=== PATIENT | female | born 1970 | race Caucasian/White ===

== ENCOUNTER 2018-05-21 15:19 | Inpatient (IN) | payer SELFPAY ==
[~2018-05-21] VITALS: Ht 165.1 cm; Wt 77.1 kg
--- OUTSIDE RECORDS SUMMARY | 2018-05-21 15:24 | XMS REPORT ---
Author Author [facility] Medical Staff Organization [facility] Address [address], [place] [address] Phone [phone] Care Team Providers Care Oyster Grower Name Role Phone NOÉ TUCKER, KARL PP [phone] Summary purpose TRANSITION OF CARE AUTO GENERATION Chief Complaint and Reason for Visit Admit Diagnosis 1 SWELLING IN HEAD NECK Problem list No authorized problems tracked for continuity of care are available for this visit. Encounters No authorized problems tracked for encounter diagnoses are available for this visit. Medications No medications recorded for this patient visit Allergies, adverse reactions, alerts Allergen Category Ingredient Status Reaction Severity Onset Penicillins Drug Allergy Penicillins Confirmed or Verified cortisone Drug Allergy cortisone Confirmed or Verified Sulfa (Sulfonamide Antibiotics) Drug Allergy Sulfa (Sulfonamide Antibiotics) Confirmed or Verified Immunizations No immunizations recorded for this patient visit Relevant diagnostic tests and/or laboratory data No authorized results are available for this patient visit History of procedures Procedure Code Code Type Description Date Performed Performing Physician 51317 CPT-4 EMERGENCY DEPT VISIT 08-22-2014 SAJI MALDONADO 52775 CPT-4 EMERGENCY DEPT VISIT 08-22-2014 SAJI MALDONADO Functional status Functional Status Finding Observation Time Abdomen Appearance flat :45 Abdomen soft :45 Urination normal :45 Quality sym/unlabored :45 Cough absent :45 Secretions no :45 Breath Sounds RUL clear :45 Breath Sounds RML clear :45 Breath Sounds RLL clear :45 Breath Sounds JURGEN clear :45 Breath Sounds LLL clear :45 Airway natural :45 Oxygen no :45 Temp >100.4 no :45 Temp <96.8 no :45 Chills with rigors no :45 HR > 90bpm no :45 Respirations > 20 no : Systolic <90 no :45 headache stiff neck no :45 Rapid Resp no :45 Nursing Note d/c instructions reviewed with the patient and she voiced a understanding. Instructed pt to hold celexa for 3 days and take lorazepam for next few days. pt d/c off unit ambulatory in good condition with personal belongings. no hives or SOA noted at this time. :50 Vital signs Type Value Date Respiration Rate 20breaths per minute : Pulse 94beats per minute : Oxygen Saturation 98% :30 BP Systolic 158mmHg :30 BP Diastolic 83mmHg :30 Temperature 98.0F :10 Social history Type Value Smoking Status FORMER SMOKER Treatment Plan No treatment plan text is available for this visit. Hospital discharge instructions Dismissal Condition good Disposition on DC home DC Inst/Educ Give yes PNE Vac none Flu Vac none Tetanus Vac none
--- OUTSIDE RECORDS SUMMARY | 2018-05-21 15:24 | XMS REPORT ---
Author Author [email or web address] [facility] Medical Staff Organization [employer] [facility] Address [address], [place] [address] Phone [phone] Summary purpose TRANSITION OF CARE AUTO GENERATION Chief Complaint and Reason for Visit Admit Diagnosis 1 HEADACHE Problem list No authorized problems tracked for [...] visit Relevant diagnostic tests and/or laboratory data RESULTS Chemistry [id number]:00:00 Result Normal Range Units Sodium 136 134-145 mEq/l Potassium 4.2 3.5-5.1 mEq/l Chloride 98 98-107 mEq/l CO2 H 29.9 22-28 mEq/l Glucose H 239 70-105 mg/dl BUN 10 7-18 mg/dl Creatinine 0.74 0.6-1.0 mg/dl Calcium 9.1 8.4-10.2 mg/dl TP - Total Protein 8.2 6.0-8.3 g/dl Albumin L 3.4 3.5-5 g/dl Bilirubin - Total 0.2 0.1-1.0 mg/dl AST 14 10-42 IU/L ALT 17 12-65 IU/L ALP H 76 25-72 IU/L Osmolality L 278.8 280-300 mOsm/L Albumin/Globulin Ratio 0.7 0-8 Anion GAP 8.1 8-16 BUN/Creatinine Ratio 13.5 10-20 Estimated GFR 86 >=60 mL/min/1.7 Hematology [id number]:00:00 Result Normal Range Units WBC H 10.9 4.8-10.8 103/uL RBC 5.4 4.2-5.4 106/uL HGB L 9.5 12.0-16.0 g/dl HCT L 33.6 36.9-47.0 % MCV L 62.5 81-99 FL MCH L 17.7 27-31 pg MCHC L 28.3 33-37 g/dl RDW H 19.8 11.5-15.5 % PLT 266 130-400 103/uL MPV 10.1 7.3-10.4 FL Segs 58.0 40-70 % Lymphs H 41.0 20-40 % [place] 1.0 0-10 % Hematology - Other (Misc) [id number]:00:00 Result Normal Range Units Sed Rate H 24 0-20 Radiology Results [id number]:00 Result Normal Range Units MPV 10.1 7.3-10.4 FL History of procedures Procedure Code Code Type Description Date Performed Performing Physician 33198 CPT-4 RBC SED RATE, NONAUTOMATED 08-03-2014 HARLEEN HENDRICKSON 70683 CPT-4 COMPREHEN METABOLIC PANEL 08-03-2014 HARLEEN HENDRICKSON 09712 CPT-4 ROUTINE VENIPUNCTURE 08-03-2014 HARLEEN HENDRICKSON 98808 CPT-4 COMPLETE CBC, AUTOMATED 08-03-2014 HARLEEN HENDRICKSON 82257 CPT-4 BL SMEAR W/DIFF WBC COUNT 08-03-2014 HARLEEN HENDRICKSON J1885 CPT-4 TORADOL SYR 30MG/ML 08-03-2014 HARLEEN HENDRICKSON J2405 CPT-4 ONDANSETRON HCL INJECTION 08-03-2014 HARLEEN HENDRICKSON J7030 CPT-4 NORMAL SALINE SOLUTION INFUS 08-03-2014 HARLEEN HENDRICKSON J2060 CPT-4 LORAZEPAM INJECTION 08-04-2014 HARLEEN HENDRICKSON 48156 CPT-4 EMERGENCY DEPT VISIT 08-03-2014 HARLEEN HENDRICKSON 55328 CPT-4 THER/PROPH/DIAG INJ, IV PUSH 08-03-2014 HARLEEN HENDRICKSON 40768 CPT-4 TX/PRO/DX INJ NEW DRUG ADDON 08-03-2014 HARLEEN HENDRICKSON 11862 CPT-4 EMERGENCY DEPT VISIT 08-03-2014 HARLEEN HENDRICKSON Functional status Functional Status Finding Observation Time Abdomen Appearance flat 88-17-216584:25 Abdomen soft 41-62-444004:25 Urination normal : Quality sym/unlabored : Cough absent : Airway natural : Oxygen no :45 Temp >100.4 no : Temp <96.8 no : Chills with rigors no : HR > 90bpm no : Respirations > 20 no : Systolic <90 no : headache stiff neck no : Rapid Resp no : IV Site Location L Hand :55 IV Type peripheral :55 IV Site Information discontinued :55 IV Site Start Attmpt 1 times :45 IV Site Duglas 20 :45 IV Site Appearance WNL :45 IV Site Color clear :45 IV Site Patent yes :45 Dressing Changed yes :45 Dressing Type occlusive :45 Nursing Note IV site dcd. Discharge instructions given, voices understanding. Rx oxy/apap et ativan. Amb off unit in good condition. :55 Vital signs Type Value Date Respiration Rate 18breaths per minute :45 Pulse 90beats per minute :45 Oxygen Saturation 99% :45 BP Systolic 120mmHg :45 BP Diastolic 70mmHg :45 Temperature 98.0F :45 Social history No Social History or smoking status observations were recorded for this visit. ( Unknown if ever smoked.) Treatment Plan No treatment plan text is available for this visit. Hospital discharge instructions Dismissal Condition good Disposition on DC home DC Inst/Educ Give yes Med/Side Effects Rev yes Comment: rx oxy/apap et ativan
--- OUTSIDE RECORDS SUMMARY | 2018-05-21 15:24 | XMS REPORT ---
Author Author [facility] Medical Staff Organization [facility] Address [address], [place] [address] Phone [phone] Summary purpose TRANSITION OF CARE AUTO GENERATION Chief Complaint and Reason for Visit Admit Diagnosis 1 PAIN IN OR AROUND EYE Problem list No authorized problems tracked for [...] Relevant diagnostic tests and/or laboratory data RESULTS Radiology Results [id number]:00 CT HEAD W/O CONT PACs Image DATE OF EXAM: Aug 01 2014 [id number] HEAD WO CONTRAST : RADIOLOGY REPORT DATE OF SERVICE: 08/01/2014 HISTORY: Severe headache, blurred vision. NONCONTRAST CT SCAN OF THE HEAD: 1138 HOURS Axial scans were obtained at 5 mm intervals. No contrast was administered. The ventricles are normal in size. There are no masses. There is no midline shift. There is no hemorrhage or infarction. The cerebellum and brainstem are normal. The bony calvarium is normal and intact. IMPRESSION: Normal CT head MD LIZZETTE Skelton/jjim08/03/2014 15:42:00 / 08/03/2014 18:45:50 cc: This document has been electronically Signed by: On: DATE OF EXAM: Aug 01 2014 [id number] HEAD WO CONTRAST : RADIOLOGY REPORT DATE OF SERVICE: 08/01/2014 HISTORY: Severe headache, blurred vision. NONCONTRAST CT SCAN OF THE HEAD: 1138 HOURS Axial scans were obtained at 5 mm intervals. No contrast was administered. The ventricles are normal in size. There are no masses. There is no midline shift. There is no hemorrhage or infarction. The cerebellum and brainstem are normal. The bony calvarium is normal and intact. IMPRESSION: Normal CT head Benjamin Rmoan MD MWD/jt08/03/2014 15:42:00 / 08/03/2014 18:45:50 cc: This document has been electronically Signed by: BENJAMIN ROMAN On: Aug 04 20147:17A Result Amended on 2014-08-04 at 07:17:14. Previous status was [place]. History of procedures Procedure Code Code Type Description Date Performed Performing Physician 14040 CPT-4 CT HEAD/BRAIN W/O DYE 08-01-2014 SAJI ARIEL J1885 CPT-4 TORADOL SYR 30MG/ML 08-02-2014 SAJI ARIEL 01855 CPT-4 EMERGENCY DEPT VISIT 08-01-2014 SAJI ARIEL 83376 CPT-4 EMERGENCY DEPT VISIT 08-01-2014 SAJI ARIEL 25110 CPT-4 THER/PROPH/DIAG INJ, SC/IM 08-01-2014 SAJI ARIEL Functional status Functional Status Finding Observation Time Abdomen Appearance flat :00 Abdomen soft 42-43-326994:00 Bowel Sounds present :00 Urination normal : Quality sym/unlabored : Cough absent : Airway natural :00 Oxygen no 81-77-064909:17 Temp >100.4 no :00 Temp <96.8 no :00 Chills with rigors no :00 HR > 90bpm no :00 Respirations > 20 no :00 Systolic <90 no :00 headache stiff neck no :00 Rapid Resp no : Nursing Note Discharge instructions given, voices understanding. Home c lortab et polytrim opthalmic eye drops. Amb off unit in good condition. [id number]:17 Vital signs Type Value Date Respiration Rate 18breaths per minute 94-45-774224:17 Pulse 90beats per minute 83-30-227358:17 Oxygen Saturation 98% 07-84-370922:17 BP Systolic 126mmHg 64-24-572734:17 BP Diastolic 73mmHg 31-07-952225:17 Temperature 98.9F 43-82-647415:17 Social history No Social History or smoking status observations were recorded for this visit. ( Unknown if ever smoked.) Treatment Plan No treatment plan text is available for this visit. Hospital discharge instructions Dismissal Condition good Disposition on DC home DC Inst/Educ Give yes Med/Side Effects Rev yes Comment: home c lortab et polytrim opthalmic eye drops Tetanus Vac Unknown
--- OUTSIDE RECORDS SUMMARY | 2018-05-21 15:25 | XMS REPORT | Continuity of Care Document ---
Demographics x Preferred Language Unknown Marital Status Unknown Zoroastrianism Affiliation Unknown Race Unknown Ethnic Group Unknown Author Organization Unknown Address Unknown Allergies Active Description Code Type Severity Reaction Onset Reported/Identified Relationship to Patient Clinical Status Yes cortisone 4945 Drug Allergy N/ A N/A Confirmed or Verified Yes Penicillins 476 Drug Allergy N/ A N/A Yes Sulfa (Sulfonamide Antibiotics) 491 Drug Allergy N/A N/A Confirmed or Verified Medications There is no data. Problems Date Dx Coded Attending Type Code Diagnosis Diagnosed By 08/22/2014 CONSTANTINE SANCHEZ 784.2 SWELLING IN HEAD NECK 08/22/2014 CONSTANTINE SANCHEZ E939.0 ADV EFF ANTIDEPRESSANTS Procedures Code [place] [address] EMERGENCY DEPT VISIT 08/22/2014 Results Test Result Range CBC WITH DIFF - 08/03/14 00:00 HCT 33.6 % 36.9-47.0 HGB 9.5 G/DL 12.0-16.0 LYMPH 41.0 % 20-40 MCH 17.7 PG 27-31 MCHC 28.3 G/DL 33-37 MCV 62.5 FL 81-99 MONO 1.0 % 0-10 MPV 10.1 FL 7.3-10.4 PLT 266 10^3u 130-400 RBC 5.4 10^6u 4.2-5.4 RDW 19.8 % 11.5-15.5 WBC 10.9 10^3u 4.8-10.8 SEGS 58.0 % 40-70 CMP - 08/03/14 00:00 ALB 3.4 G/DL 3.5-5 ALP 76 IU/L 25-72 ALT 17 IU/L 12-65 AST 14 IU/L 10-42 BCR 13.5 10-20 BUN 10 MG/DL 7-18 CA 9.1 MG/DL 8.4-10.2 CL 98 MEQ/L 98-107 CO2 29.9 MEQ/L 22-28 CREA 0.74 MG/DL 0.6-1.0 EGFR 86 eGFR >=60 GLU 239 MG/DL 70-105 K 4.2 MEQ/L 3.5-5.1 NA 136 MEQ/L 134-145 OSMSC 278.8 MOSML 280-300 TBIL 0.2 MG/DL 0.1-1.0 TP 8.2 G/DL 6.0-8.3 Albumin/Globulin Ratio 0.7 0-8 Anion Gap 8.1 8-16 SEDR - 08/03/14 00:00 SEDR 24 0-20 Encounters ACCT No. Visit Date/Time Discharge Status Pt. Type Provider Facility Loc./Unit Complaint [id number] 08/22/2014 18:14:00 08/22/2014 18:50:00 DIS Emergency CONSTANTINE SANCHEZ [facility] EMR [id number] 08/03/2014 21:54:00 08/04/2014 01:00:00 DIS Emergency HARLEEN HENDRICKSON [facility] EMR [id number] 08/01/2014 21:40:00 08/02/2014 01:17:00 DIS Emergency SAJI GEORGE [facility] EMR [id number] 01/05/2014 00:00:00 Document Registration [id number] 09/16/2016 14:10:02 ACT Unknown
--- OUTSIDE RECORDS SUMMARY | 2018-05-21 15:25 | XMS REPORT | Clinical Summary ---
Author Author Admin, E Organization [facility] Address Unknown Phone Unavailable Allergies, Adverse Reactions, Alerts Allergy Name Reaction Description Start Date Severity Status Provider PREDNISONE Critical Active Feroz Blair MD Conditions or Problems Problem Name Problem Code Onset Date Status Entry Date Provider Comment Standard Description Annotate Contusion of left foot, initial encounter Active Feroz Blair MD Medication List Medication Instructions Start Date Stop Date Generic Name NDC Status Provider Patient Instruction BACTRIM DS 800-160 MG TAB 1 tab by mouth twice daily TRIMETHOPRIM-SULFAMETHOXAZOLE 03015777666 Active Feroz Blair MD Active Vital Signs Date Name Value Unit Range Description blood pressure, diastolic 80 mm[Hg] BP mejia blood pressure, systolic 155 mm[Hg] BP sys pulse rate E&M 97 /min Heart rate temperature E&M 97.8 [degF] Body temperature weight E&M 178 [lb_av] Weight Measured Encounters Code Encounter Date Provider Facility CPT-29620 Level 3 Est. Patient 21:12:55 CDT Feroz Blair MD [facility]
--- OUTSIDE RECORDS SUMMARY | 2018-05-21 15:25 | XMS REPORT | Clinical Summary ---
Author Author Admin, E Organization [facility] Address Unknown Phone Unavailable Allergies, Adverse Reactions, [...] 1 tab by mouth twice daily TRIMETHOPRIM-SULFAMETHOXAZOLE [id number] Active Feroz Blair MD Active Vital Signs Date Name Value Unit Range Description blood pressure, diastolic 80 mm[Hg] BP mejia blood pressure, systolic 155 mm[Hg] BP sys pulse rate E&M 97 /min Heart rate temperature E&M 97.8 [degF] Body temperature weight E&M 178 [lb_av] Weight Measured Encounters Code Encounter Date Provider Facility CPT-54562 Level 3 Est. Patient 21:12:55 CDT Feroz Blair MD [facility]
--- OUTSIDE RECORDS SUMMARY | 2018-05-21 15:25 | XMS REPORT | Clinical Summary ---
Author Author Admin, E Organization [facility] Address Unknown Phone Unavailable Allergies, Adverse Reactions, [...] 1 tab by mouth twice daily TRIMETHOPRIM-SULFAMETHOXAZOLE [id number] No Longer Active Feroz Blair MD Active BACTRIM DS 800-160 MG TAB 1 tab by mouth twice daily BACTRIM DS 800-160 MG TAB [id number] TRIMETHOPRIM-SULFAMETHOXAZOLE Inactive Vital Signs Date Name Value Unit Range Description blood pressure, diastolic 80 mm[Hg] BP mejia blood pressure, systolic 155 mm[Hg] BP sys pulse rate E&M 97 /min Heart rate temperature E&M 97.8 [degF] Body temperature weight E&M 178 [lb_av] Weight Measured Encounters Code Encounter Date Provider Facility CPT-74989 Level 3 Est. Patient 21:12:55 CDT Feroz Blair MD [facility]
--- OUTSIDE RECORDS SUMMARY | 2018-05-21 15:25 | XMS REPORT | Clinical Summary ---
Author Author Admin, E Organization [facility] Address Unknown Phone Unavailable Allergies, Adverse Reactions, [...] 1 tab by mouth twice daily TRIMETHOPRIM-SULFAMETHOXAZOLE [id number] No Longer Active Feroz Blair MD Active BACTRIM DS 800-160 MG TAB 1 tab by mouth twice daily BACTRIM DS 800-160 MG TAB [id number] TRIMETHOPRIM-SULFAMETHOXAZOLE Inactive Vital Signs Date Name Value Unit Range Description blood pressure, diastolic 80 mm[Hg] BP mejia blood pressure, systolic 155 mm[Hg] BP sys pulse rate E&M 97 /min Heart rate temperature E&M 97.8 [degF] Body temperature weight E&M 178 [lb_av] Weight Measured Encounters Code Encounter Date Provider Facility CPT-95953 Level 3 Est. Patient 21:12:55 CDT Feroz Blair MD [facility]
--- OUTSIDE RECORDS SUMMARY | 2018-05-21 15:25 | XMS REPORT | Clinical Summary ---
Author Author Admin, E Organization [facility] Address Unknown Phone Unavailable Allergies, Adverse [...] 1 tab by mouth twice daily TRIMETHOPRIM-SULFAMETHOXAZOLE [id number] No Longer Active Feroz Blair MD Active BACTRIM DS 800-160 MG TAB 1 tab by mouth twice daily BACTRIM DS 800-160 MG TAB [id number] TRIMETHOPRIM-SULFAMETHOXAZOLE Inactive Vital Signs Date Name Value Unit Range Description blood pressure, diastolic 80 mm[Hg] BP mejia blood pressure, systolic 155 mm[Hg] BP sys pulse rate E&M 97 /min Heart rate temperature E&M 97.8 [degF] Body temperature weight E&M 178 [lb_av] Weight Measured Encounters Code Encounter Date Provider Facility CPT-83135 Level 3 Est. Patient 21:12:55 CDT Feroz Blair MD [facility]
--- OUTSIDE RECORDS SUMMARY | 2018-05-21 15:25 | XMS REPORT | Clinical Summary ---
Author Author Admin, E Organization [facility] Address Unknown Phone Unavailable Allergies, Adverse [...] 1 tab by mouth twice daily TRIMETHOPRIM-SULFAMETHOXAZOLE [id number] No Longer Active Feroz Blair MD Active BACTRIM DS 800-160 MG TAB 1 tab by mouth twice daily BACTRIM DS 800-160 MG TAB [id number] TRIMETHOPRIM-SULFAMETHOXAZOLE Inactive Vital Signs Date Name Value Unit Range Description blood pressure, diastolic 80 mm[Hg] BP mejia blood pressure, systolic 155 mm[Hg] BP sys pulse rate E&M 97 /min Heart rate temperature E&M 97.8 [degF] Body temperature weight E&M 178 [lb_av] Weight Measured Encounters Code Encounter Date Provider Facility CPT-48233 Level 3 Est. Patient 21:12:55 CDT Feroz Blair MD [facility]
--- OUTSIDE RECORDS SUMMARY | 2018-05-21 15:25 | XMS REPORT | Clinical Summary ---
Author Author Admin, E Organization [facility] Address Unknown Phone Unavailable Allergies, Adverse [...] 1 tab by mouth twice daily TRIMETHOPRIM-SULFAMETHOXAZOLE [id number] Active Feroz Blair MD Active Vital Signs Date Name Value Unit Range Description blood pressure, diastolic 80 mm[Hg] BP mejia blood pressure, systolic 155 mm[Hg] BP sys pulse rate E&M 97 /min Heart rate temperature E&M 97.8 [degF] Body temperature weight E&M 178 [lb_av] Weight Measured Encounters Code Encounter Date Provider Facility CPT-64125 Level 3 Est. Patient 21:12:55 CDT Feroz Blair MD [facility]
--- OUTSIDE RECORDS SUMMARY | 2018-05-21 15:25 | XMS REPORT ---
Author Author [facility] Medical Staff Organization [facility] Address [address], [place] [address] Phone [phone] Summary purpose TRANSITION OF CARE AUTO GENERATION Chief Complaint and Reason for Visit No authorized Reason for Visit (Admitting Diagnosis) is available for this visit. Problem list No authorized problems tracked for [...] for this patient visit History of procedures No procedures recorded for this patient visit. Functional status Functional Status Finding Observation Time Abdomen Appearance flat : Abdomen soft : Bowel Sounds present : Urination normal : Quality sym/unlabored : Cough absent : Airway natural : Oxygen no 57-38-226487:17 Temp >100.4 no : Temp <96.8 no :00 Chills with rigors no : HR > 90bpm no : Respirations > 20 no : Systolic <90 no : headache stiff neck no : Rapid Resp no : Nursing Note Discharge instructions given, voices understanding. Home c lortab et polytrim opthalmic eye drops. Amb off unit in good condition. :17 Vital signs Type Value Date Respiration Rate 18breaths per minute :17 Pulse 90beats per minute :17 Oxygen Saturation 98% :17 BP Systolic 126mmHg :17 BP Diastolic 73mmHg 55-51-879403:17 Temperature 98.9F :17 Social history No Social History or smoking [...]
--- OUTSIDE RECORDS SUMMARY | 2018-05-21 15:25 | XMS REPORT ---
Author Author [employer] [facility] Medical Staff Organization [facility] [employer] [facility] Address [address] [place], [place] [address] Phone [phone] Summary purpose TRANSITION OF CARE AUTO GENERATION [...] diagnostic tests and/or laboratory data RESULTS Chemistry [id number]:00:00 Result Normal Range Units Sodium 136 134-145 [...] 10-20 Estimated GFR 86 >=60 mL/min/1.7 Hematology :00:00 Result Normal Range Units WBC H 10.9 4.8-10.8 103/uL RBC 5.4 4.2-5.4 106/uL HGB L 9.5 12.0-16.0 g/dl HCT L 33.6 36.9-47.0 % MCV L 62.5 81-99 FL MCH L 17.7 27-31 pg MCHC L 28.3 33-37 g/dl RDW H 19.8 11.5-15.5 % PLT 266 130-400 103/uL MPV 10.1 7.3-10.4 FL Segs 58.0 40-70 % Lymphs H 41.0 20-40 % [place] 1.0 0-10 % Hematology - Other (Misc) :00:00 Result Normal Range Units Sed Rate H 24 0-20 Radiology Results :00:00 Result Normal Range Units MPV 10.1 7.3-10.4 FL History of procedures No procedures recorded for this patient visit. Functional status Functional Status Finding Observation Time Abdomen Appearance flat :25 Abdomen soft :25 Urination normal 48-78-199063:25 Quality sym/unlabored :25 Cough absent :25 Airway natural :25 Oxygen no :45 Temp >100.4 no : Temp <96.8 no : Chills with rigors no : HR > 90bpm no : Respirations > 20 no : Systolic <90 no : headache stiff neck no :25 Rapid Resp no :25 IV Site Location L Hand :55 IV [...]
--- NOTE | 2018-05-21 15:46 | ED Syncope ---
General Chief Complaint: Dizziness/Syncope Stated Complaint: SYNCOPE Nursing Triage Note: had syncopal episode at home. Significant other caught her before she hit the ground and was not unconscious for very long. States she has been intermittently dizzy and having mild headaches for the past week. Source of Information: Patient, Spouse Exam Limitations: No Limitations History of Present Illness Date Seen by Provider: May 21, 2018 Time Seen by Provider: 15:25 Initial Comments 48-year-old female who has been having some problems with dizziness over the last couple days presents after having a syncopal episode in the shower. Her was nearby caught her. There is no injuries from the fall. He states that she was unconscious for less than a minute. She woke up with normal mentation. She did not have any lateralizing symptoms. She has had some blurry vision recently but no headache or head injury reported. No fever, chills, respiratory symptoms other than her chronic cough or other associated symptoms. No chest pain reported. She smokes 1-1/2 packs of cigarettes a day. Denies alcohol consumption or drug use. The episode occurred shortly before arriving here. No history of previous similar symptoms reported. Allergies and Home Medications Allergies Coded Allergies: Penicillins (Verified Allergy, Unknown, swelling, 05/21/18) Sulfa (Sulfonamide Antibiotics) (Verified Allergy, Unknown, swelling, 05/21) cortisone (Verified Allergy, Unknown, 05/21/18) prednisone (Verified Allergy, Unknown, swelling, 05/21/18) Patient Home Medication List Home Medication List Reviewed: Yes Review of Systems Constitutional: malaise, weakness EENTM: no symptoms reported Respiratory: cough (chronic) Cardiovascular: no symptoms reported Gastrointestinal: no symptoms reported Genitourinary: no symptoms reported : No Musculoskeletal: no symptoms reported Skin: no symptoms reported Psychiatric/Neurological: Weakness Past Fblgxfr-Ppdyjb-Kadqpb Hx Past Med/Social Hx: Reviewed Nursing Past Med/Soc Hx Patient Social History Recent Foreign Travel: No Contact w/Someone Who Travel: No Recent Infectious Disease Expo: No Physical Exam Vital Signs Vital Signs - First Documented 05/21/18 15:24 Temp 97.0 Pulse 99 Resp 18 B/P (MAP) 157/74 (101) Pulse Ox 97 Capillary Refill : Less Than 3 Seconds Height, Weight, BMI Height: 5'5.00" Weight: 170lbs. oz. 77.683592lk; BMI Method:Stated General Appearance: No Apparent Distress, WD/WN HEENT: PERRL/EOMI, TMs Normal, Normal ENT Inspection, Pharynx Normal Neck: Full Range of Motion, Normal Inspection, Non Tender, Supple Cardiovascular: Regular Rate, Rhythm, No Edema, No Gallop, No JVD, No Murmur, Normal Peripheral Pulses Respiratory: Decreased Breath Sounds, Rhonci (diffusely) Gastrointestinal: Normal Bowel Sounds, No Organomegaly, No Pulsatile Mass, Non Tender, Soft Back: Normal Inspection, No CVA Tenderness, No Vertebral Tenderness Extremities: Normal Capillary Refill, Normal Inspection, Normal Range of Motion , Non Tender, No Calf Tenderness, No Pedal Edema Neurologic/Psychiatric: Alert, Oriented x3, No Motor/Sensory Deficits, Normal Mood/Affect Cranial Nerves: Normal Hearing, Normal Speech, PERRL Coordination/Gait: Normal Finger to Nose, Normal Gait, Negative Romberg's Sign Motor/Sensory: No Motor Deficit, No Sensory Deficit, No Pronator Drift Reflexes: 3+ Bicep (R), 3+ Bicep (L), 3+ Knee (R), 3+ Knee (L) Skin: Normal Color, Warm/Dry, Cool Lymphatic: No Adenopathy Progress/Results/Core Measures Results/Orders Lab Results Laboratory Tests Test 05/21/18 15:39 05/21/18 15:59 Range/Units White Blood Count 7.1 4.3-11.0 10^3/uL Red Blood Count 5.46 4.35-5.85 10^6/uL Hemoglobin 13.0 11.5-16.0 G/DL Hematocrit 41 35-52 % Mean Corpuscular Volume 75 L 80-99 FL Mean Corpuscular Hemoglobin 24 L 25-34 PG Mean Corpuscular Hemoglobin Concent 32 32-36 G/DL Red Cell Distribution Width 17.8 H 10.0-14.5 % Platelet Count 210 130-400 10^3/uL Mean Platelet Volume 10.3 7.4-10.4 FL Neutrophils (%) (Auto) 57 42-75 % Lymphocytes (%) (Auto) 35 12-44 % Monocytes (%) (Auto) 6 0-12 % Eosinophils (%) (Auto) 1 0-10 % Basophils (%) (Auto) 1 0-10 % Neutrophils # (Auto) 4.1 1.8-7.8 X 10^3 Lymphocytes # (Auto) 2.5 1.0-4.0 X 10^3 Monocytes # (Auto) 0.4 0.0-1.0 X 10^3 Eosinophils # (Auto) 0.1 0.0-0.3 10^3/uL Basophils # (Auto) 0.1 0.0-0.1 10^3/uL Sodium Level 133 L 135-145 MMOL/L Potassium Level 4.0 3.6-5.0 MMOL/L Chloride Level 95 L 98-107 MMOL/L Carbon Dioxide Level 16 L 21-32 MMOL/L Anion Gap 22 H 5-14 MMOL/L Blood Urea Nitrogen 12 7-18 MG/DL Creatinine 0.60 0.60-1.30 MG/DL Estimat Glomerular Filtration Rate > 60 BUN/Creatinine Ratio 20 Glucose Level 394 H 70-105 MG/DL Calcium Level 9.3 8.5-10.1 MG/DL Corrected Calcium 9.5 8.5-10.1 MG/DL Total Bilirubin 0.3 0.1-1.0 MG/DL Aspartate Amino Transf (AST/SGOT) 11 5-34 U/L Alanine Aminotransferase (ALT/SGPT) 10 0-55 U/L Alkaline Phosphatase 108 40-136 U/L Troponin T < 10 <=10 NG/L Total Protein 8.0 6.4-8.2 GM/DL Albumin 3.8 3.2-4.5 GM/DL Urine Color YELLOW Urine Clarity CLEAR Urine pH 6.0 5-9 Urine Specific [place] 1.010 L 1.016-1.022 Urine Protein NEGATIVE NEGATIVE Urine Glucose (UA) 3+ H NEGATIVE Urine Ketones NEGATIVE NEGATIVE Urine Nitrite NEGATIVE NEGATIVE Urine Bilirubin NEGATIVE NEGATIVE Urine Urobilinogen 0.2 NORMAL MG/DL Urine Leukocyte Esterase NEGATIVE NEGATIVE Urine RBC (Auto) NEGATIVE NEGATIVE Urine RBC NONE /HPF Urine WBC NONE /HPF Urine Squamous Epithelial Cells 0-2 /HPF Urine Crystals NONE /LPF Urine Bacteria NONE /HPF Urine Casts NONE /LPF Urine Mucus NEGATIVE /LPF Urine Culture Indicated NO Urine Opiates Screen NEGATIVE NEGATIVE Urine Oxycodone Screen NEGATIVE NEGATIVE Urine Methadone Screen NEGATIVE NEGATIVE Urine Propoxyphene Screen NEGATIVE NEGATIVE Urine Barbiturates Screen NEGATIVE NEGATIVE Ur Tricyclic Antidepressants Screen NEGATIVE NEGATIVE Urine Phencyclidine Screen NEGATIVE NEGATIVE Urine Amphetamines Screen NEGATIVE NEGATIVE Urine Methamphetamines Screen NEGATIVE NEGATIVE Urine Benzodiazepines Screen NEGATIVE NEGATIVE Urine Cocaine Screen NEGATIVE NEGATIVE Urine Cannabinoids Screen NEGATIVE NEGATIVE My Orders Orders - MILADYS ALDANA MD Chest 1 View Ap/Pa Only (05/21/18 15:36) Ekg Tracing (05/21/18 15:36) Ed Iv/Invasive Line Start (05/21/18 15:36) Monitor-Rhythm Ecg Trace Only (05/21/18 15:36) Ct Head Wo (05/21/18 15:36) Cbc With Automated Diff (05/21/18 15:36) Comprehensive Metabolic Panel (05/21/18 15:36) Ua Culture If Indicated (05/21/18 15:36) Troponin T (05/21/18 15:36) Drug Screen Stat (Urine) (05/21/18 15:36) Ed Iv/Invasive Line Start (05/21/18 16:35) Ns Iv 1000 Ml (Sodium Chloride 0.9%) (05/21/18 16:35) Levofloxacin 750 Mg/150 Ml Iv (Levaquin (05/21/18 16:35) Insulin Aspart (Novolog) (Novolog (Charg (05/21/18 16:45) Vital Signs/I&O 05/21/18 15:24 Temp 97.0 Pulse 99 Resp 18 B/P (MAP) 157/74 (101) Pulse Ox 97 Blood Pressure Mean: 101 Progress Progress Note : Time: 15:46 Progress Note Will perform cardiac workup and CT of her head. Exam shows no lateralizing or neurologic findings. Discussed planned workup with patient and . They understand and agree. Initial ECG Impression Date: May 21, 2018 Initial ECG Impression Time: 15:39 Initial ECG Rhythm: Normal Sinus Initial ECG Intervals: Normal Initial ECG Impression: Normal Initial ECG Comparisson: No Previous ECG Available Comment within normal limits Diagnostic Imaging Diagonstic Imaging: Xray, CT Plain Films/CT/US/NM/MRI: chest, head Comments NAME: BRET VALDEZ MED REC#: [id number] PT STATUS: REG ER : 1970 PHYSICIAN: MILADYS ALDANA MD ADMIT DATE: 05/21/18/ER FS Draft Date of Exam:05/21/18 CT HEAD WO PROCEDURE: CT head without contrast. TECHNIQUE: Multiple contiguous axial images were obtained through the brain without the use of intravenous contrast. Auto Exposure Controls were utilized during the CT exam to meet ALARA standards for radiation dose reduction. INDICATION: Syncope. Dizziness. COMPARISON: None. FINDINGS: No intracranial hemorrhage, mass effect, hydrocephalus, or extra-axial fluid collections. No CT evidence for territorial infarction. The visualized paranasal sinuses and mastoids are clear. Osseous structures are intact. IMPRESSION: Negative head CT. Dictated on workstation # [id number] Dict: 05/21/18 1557 Trans: 05/21/18 1602 [facility] [id number] Interpreted by: NIMA MITCHELL MD Electronically signed by: NAME: BRET VALDEZ MED REC#: [id number] PT STATUS: REG ER : 1970 PHYSICIAN: MILADYS ALDANA MD ADMIT DATE: 05/21/18/ER FS Draft Date of Exam:05/21/18 CHEST 1 VIEW AP/PA ONLY INDICATION: Dizziness. TIME OF EXAM: 03:29 p.m. COMPARISON: No prior studies are available for comparison. FINDINGS: The heart size is stable. There is some slight increased density in the right base inferior to the right hilum which may represent minimal infiltrate. The left lung is clear. No effusion or pneumothorax is seen. IMPRESSION: Questionable minimal infiltrate at right base versus summation from overlapping vascular structures. The study is otherwise unremarkable. Dictated on workstation # [id number] Dict: 05/21/18 1555 Trans: 05/21/18 1605 [facility] [id number] Interpreted by: BANDAR CASTELLON MD Electronically signed by: Departure Communication (Admissions) Time/Spoke to Admitting Phy: 16:[address] Mario. Will admit to telemetry. Sliding scale, antibiotics and fluids instituted. Impression Primary Impression: New onset type 2 diabetes mellitus Additional Impressions: Metabolic acidosis due to diabetes mellitus Syncope and collapse Pneumonia Qualified Codes: J18.1 - Lobar pneumonia, unspecified organism Disposition: ADMITTED INPATIENT Condition: Stable Admissions Decision to Admit Reason: Admit from ER (General) Decision to Admit/Date: May 21, 2018 Time/Decision to Admit Time: 16:50 Transfer Method of Transfer: EMS Departure-Patient Inst. Decision time for Depature: 16:50 Referrals: KARL UMANZOR MD (PCP/Family) Primary Care Physician MILADYS ALDANA MD May 21, 2018 15:46
[2018-05-21 15:51] LABS: HEMATOCRIT 41 % (35-52); LYMPHOCYTES % (AUTO) 35 % (12-44); MEAN CORPUSCULAR HEMOGLOBIN 24 PG (25-34); MEAN CORPUSCULAR HGB CONC 32 G/DL (32-36); MEAN CORPUSCULAR VOLUME 75 FL (80-99); MEAN PLATELET VOLUME 10.3 FL (7.4-10.4); NEUTROPHILS % (AUTO) 57 % (42-75); PLATELET COUNT 210 10^3/uL (130-400); RED CELL DISTRIBUTION WIDTH 17.8 % (10.0-14.5); WHITE BLOOD COUNT 7.1 10^3/uL (4.3-11.0)
[2018-05-21 15:52] LABS: BASOPHILS # (AUTO) 0.1 10^3/uL (0.0-0.1); BASOPHILS % (AUTO) 1 % (0-10); EOSINOPHILS # (AUTO) 0.1 10^3/uL (0.0-0.3); EOSINOPHILS % (AUTO) 1 % (0-10); LYMPHOCYTES # (AUTO) 2.5 X 10^3 (1.0-4.0); MONOCYTES # (AUTO) 0.4 X 10^3 (0.0-1.0); MONOCYTES % (AUTO) 6 % (0-12); NEUTROPHILS # (AUTO) 4.1 X 10^3 (1.8-7.8)
--- NOTE | 2018-05-21 16:03 | Diagnostic Imaging Report ---
PROCEDURE: CT head without contrast. TECHNIQUE: Multiple contiguous axial images were obtained through the brain without the use of intravenous contrast. Auto Exposure Controls were utilized during the CT exam to meet ALARA standards for radiation dose reduction. INDICATION: Syncope. Dizziness. COMPARISON: None. FINDINGS: No intracranial hemorrhage, mass effect, hydrocephalus, or extra-axial fluid collections. No CT evidence for territorial infarction. The visualized paranasal sinuses and mastoids are clear. Osseous structures are intact. IMPRESSION: Negative head CT. Dictated by: Dictated on workstation # [id number]
--- NOTE | 2018-05-21 16:06 | Diagnostic Imaging Report ---
INDICATION: Dizziness. TIME OF EXAM: 03:29 p.m. COMPARISON: No prior studies are available for comparison. FINDINGS: The heart size is stable. There is some slight increased density in the right base inferior to the right hilum which may represent minimal infiltrate. The left lung is clear. No effusion or pneumothorax is seen. IMPRESSION: Questionable minimal infiltrate at right base versus summation from overlapping vascular structures. The study is otherwise unremarkable. Dictated by: Dictated on workstation # [id number]
[2018-05-21 16:14] LABS: BILIRUBIN,URINE NEGATIVE (NEGATIVE); CLARITY,URINE CLEAR; COLOR,URINE YELLOW; GLUCOSE, URINE (UA) 3+ (NEGATIVE); KETONES,URINE NEGATIVE (NEGATIVE); NITRITE,URINE NEGATIVE (NEGATIVE); PROTEIN,URINE NEGATIVE (NEGATIVE); UROBILINOGEN,URINE 0.2 MG/DL (NORMAL)
[2018-05-21 16:15] LABS: LEUKOCYTE ESTERASE ,URINE NEGATIVE (NEGATIVE); SQUAMOUS EPITHELIAL CELL,UR 0-2 /HPF
[2018-05-21 16:17] LABS: AMPHETAMINE SCREEN, URINE NEGATIVE (NEGATIVE); BARBITURATE SCREEN URINE NEGATIVE (NEGATIVE); BENZODIAZEPINES SCREEN URINE NEGATIVE (NEGATIVE); CANNABINOID SCREEN, URINE NEGATIVE (NEGATIVE); COCAINE SCREEN URINE NEGATIVE (NEGATIVE); METHADONE STAT NEGATIVE (NEGATIVE); METHAMPHETAMINE SCREEN URINE S NEGATIVE (NEGATIVE); OPIATE SCREEN URINE NEGATIVE (NEGATIVE); OXYCODONE STAT NEGATIVE (NEGATIVE); PROPOXYPHENE STAT NEGATIVE (NEGATIVE); TRICYCLIC ANTIDEPRESSANTS SCRE NEGATIVE (NEGATIVE)
[2018-05-21 16:20] LABS: ALANINE AMINOTRANSFERASE 10 U/L (0-55); ALBUMIN 3.8 GM/DL (3.2-4.5); ALKALINE PHOSPHATASE 108 U/L (40-136); BILIRUBIN,TOTAL 0.3 MG/DL (0.1-1.0); BUN/CREATININE RATIO 20; CALCIUM 9.3 MG/DL (8.5-10.1); CARBON DIOXIDE 16 MMOL/L (21-32); CHLORIDE 95 MMOL/L (98-107); GFR ESTIMATED > 60; GLUCOSE 394 MG/DL (70-105); SODIUM 133 MMOL/L (135-145)
[2018-05-21] MEDS ORDERED: LEVOFLOXACIN 750 MG/150 ML IV 150 ML IV STA (16:35)
[2018-05-21] MEDS ORDERED: NS IV 1000 ML 1,000 ML IV SCH (16:35)
[2018-05-21] MEDS ORDERED: inSUlin ASPART (NovoLOG) 1 UNIT/0.01 ML (CHARGE PER UNIT) SC SCH (16:45)
--- OUTSIDE RECORDS SUMMARY | 2018-05-21 17:32 | XMS REPORT | Continuity of Care Document ---
Demographics x Preferred Language Unknown Marital Status Unknown Hoahaoism Affiliation Unknown Race Unknown Ethnic Group Unknown [...] Procedures Code [place] [id number] EMERGENCY DEPT VISIT 08/22/2014 Results Test Result [...] Status Pt. Type Provider Facility Loc./Unit Complaint [id number] 08/22/2014 18:14:00 08/22/2014 18:50:00 DIS Emergency CONSTANTINE SANCHEZ [facility] EMR [id number] 08/03/2014 21:54:00 08/04/2014 01:00:00 DIS Emergency HARLEEN HENDRICKSON [facility] EMR [id number] 08/01/2014 21:40:00 08/02/2014 01:17:00 DIS Emergency SAJI GEORGE [facility] EMR [id number] 01/05/2014 00:00:00 Document Registration [id number] 09/16/2016 14:10:02 ACT Unknown
--- NOTE | 2018-05-21 18:59 | NUR ---
patient here via EMS from [facility] - introduced to call light, patient requested for this nurse to give her some time alone (tearing) and will call when ready for admission and get settled in
[2018-05-21] MEDS ORDERED: CATHETER FLUSH 10 ML SYR IV PRN (19:15)
--- NOTE | 2018-05-21 20:00 | NUR ---
SPOKE WITH DR. EDOUARD TO CLARIFY INSULIN ORDERS. ORDERS RECEIVED FOR SLIDING SCALE A AND FASTING AND 2HOURS POST.
[2018-05-21 20:19] VITALS: BP 133/72
[2018-05-21 20:26] VITALS: BP 133/72
[2018-05-21] MEDS: NS IV 1000 ML 1,000 ML IV SCH (21:01)
[2018-05-21] MEDS: NICOTINE 21 MG (NICODERM) PATCH TD SCH (21:01)
[2018-05-21] MEDS: NICOTINE 14 MG (NICODERM) PATCH TD SCH (21:01)
--- NOTE | 2018-05-21 21:16 | NUR ---
TELEPHONE ORDERS RECEIVED FROM DR. EDOUARD ATIVAN 0.5MG PO Q HS FOR ANXIETY.
[2018-05-21] MEDS: LORazepam 0.5 MG (ATIVAN) TABLET PO PRN (22:14)
[2018-05-21 22:46] VITALS: BP 133/172
[2018-05-22 00:18] VITALS: BP 105/65
[2018-05-22] MEDS ORDERED: RT-ALBUTEROL/IPRATROPIUM 3 ML (DUONEB) VIAL ONE (00:53)
[2018-05-22] MEDS: NS IV 1000 ML 1,000 ML IV SCH ×3 (03:53→15:10)
[2018-05-22 05:27] VITALS: BP 100/66
[2018-05-22 05:50] LABS: BASOPHILS % (AUTO) 0 % (0-10); EOSINOPHILS # (AUTO) 0.1 10^3/uL (0.0-0.3); EOSINOPHILS % (AUTO) 2 % (0-10); HEMATOCRIT 36 % (35-52); HEMOGLOBIN 11.6 G/DL (11.5-16.0); LYMPHOCYTES # (AUTO) 2.4 X 10^3 (1.0-4.0); LYMPHOCYTES % (AUTO) 42 % (12-44); MEAN CORPUSCULAR HEMOGLOBIN 24 PG (25-34); MEAN CORPUSCULAR HGB CONC 32 G/DL (32-36); MEAN CORPUSCULAR VOLUME 75 FL (80-99); MEAN PLATELET VOLUME 10.6 FL (7.4-10.4); MONOCYTES # (AUTO) 0.4 X 10^3 (0.0-1.0); MONOCYTES % (AUTO) 7 % (0-12); NEUTROPHILS # (AUTO) 2.8 X 10^3 (1.8-7.8); NEUTROPHILS % (AUTO) 49 % (42-75); PLATELET COUNT 187 10^3/uL (130-400); RED CELL DISTRIBUTION WIDTH 17.5 % (10.0-14.5); WHITE BLOOD COUNT 5.8 10^3/uL (4.3-11.0)
[2018-05-22 06:09] LABS: ALANINE AMINOTRANSFERASE 13 U/L (0-55); ALBUMIN 3.2 GM/DL (3.2-4.5); ALKALINE PHOSPHATASE 80 U/L (40-136); BILIRUBIN,TOTAL 0.2 MG/DL (0.1-1.0); BUN/CREATININE RATIO 14; CALCIUM 8.8 MG/DL (8.5-10.1); CARBON DIOXIDE 23 MMOL/L (21-32); CHLORIDE 105 MMOL/L (98-107); CREATININE SERUM 0.83 MG/DL (0.60-1.30); GFR ESTIMATED > 60; GLUCOSE 289 MG/DL (70-105); SODIUM 135 MMOL/L (135-145); TOTAL PROTEIN 6.5 GM/DL (6.4-8.2)
[2018-05-22] MEDS: inSUlin ASPART (NovoLOG) 1 UNIT/0.01 ML (CHARGE PER UNIT) SC SCH ×4 (06:38→20:38)
[2018-05-22] MEDS: RT-ALBUTEROL/IPRATROPIUM 3 ML (DUONEB) VIAL INH SCH ×4 (06:41→22:52)
[2018-05-22] MEDS: LORazepam 0.5 MG (ATIVAN) TABLET PO PRN ×2 (08:22→20:45)
[2018-05-22] MEDS: NICOTINE 21 MG (NICODERM) PATCH TD SCH (08:22)
[2018-05-22 08:23] VITALS: BP 121/74
[2018-05-22] MEDS ORDERED: GUAI600T43 PO (08:23)
[2018-05-22] MEDS ORDERED: LORA10TA76 PO (08:23)
--- NOTE | 2018-05-22 08:23 | NUR ---
SPOKE WITH THE PATIENT ABOUT HER MEDICATIONS. SHE STATES PRIOR TO ADMISSION SHE ONLY TOOK CLARITIN AND MUCINEX OTC PRN.
[2018-05-22] MEDS: NICOTINE 14 MG (NICODERM) PATCH TD SCH (08:26)
[2018-05-22] MEDS: [UNRECOGNIZED DRUG - REMARK] TP SCH (08:26)
[2018-05-22] MEDS ORDERED: [UNRECOGNIZED DRUG - REMARK] TP SCH (08:59)
[2018-05-22] MEDS ORDERED: LEVOFLOXACIN 750 MG/150 ML IV 150 ML IV SCH (11:00)
[2018-05-22 12:00] VITALS: BP 109/65
[2018-05-22] MEDS ORDERED: NON-FORMULARY MEDICATION 1 EA EA (Loratadine (Claritin) 10 MG) PO PRN (15:15)
[2018-05-22] MEDS ORDERED: LORATADINE (CLARITIN) 10 MG TAB PO PRN (15:30)
--- NOTE | 2018-05-22 15:36 | NUR ---
Pastoral care visit.
--- NOTE | 2018-05-22 15:39 | History & Physicial (CHS) ---
HPI History of Present Illness: 48 yo F that presented to ER after syncopal episode. States that starting last week she has been having dizzy spells. States that she get the dizzy spells when she stands up or is standing up. Her syncopal episode happened when she was in the shower. She felt the room spinning and then everything went dark. Denies any shortness of breath or chest pain prior or during these episodes. She was found to have elevated blood sugars in the ER. Denies any other symptoms or medical problems Source: patient, family (daughter, ), RN/MD Exam Limitations: no limitations Date seen by provider: May 22, 2018 Time Seen by Provider: 11:35 Attending Physician Maria Elena Mario MD PCP Karl Umanzor MD Consult Date of Admission May 21, 2018 at 17:28 Home Medications Home Medications Reviewed patient Home Medication Reconciliation performed by pharmacy medication reconciliations conveyor technician and/or nursing. Patients Allergies have been reviewed. Allergies Coded Allergies: Penicillins (Verified Allergy, Unknown, swelling, 05/21/18) Sulfa (Sulfonamide Antibiotics) (Verified Allergy, Unknown, swelling, 05/21) cortisone (Verified Allergy, Unknown, 05/21/18) prednisone (Verified Allergy, Unknown, swelling, 05/21/18) KSE-Kdvqqv-Ehlvef Hx Patient Social History Living Status: Live at home Alcohol Use: Denies Use Recreational Drug Use: No Smoking Status: Current Everyday Smoker Type Used: Cigarettes 2nd Hand Smoke Exposure: Yes Recent Foreign Travel: No Contact w/other who traveled: No Recent Hopitalizations: No Recent Infectious Disease Expo: No Past Medical History Elevated blood sugar Tobacco Abuse Family Medical History Significant Family History: CAD Over 55 Years Old, COPD, Diabetes Review of Systems (CHC) Constitutional: No chills; dizziness; No fever; malaise EENTM: no symptoms reported, other (ringing in ears); No blurred vision, No double vision Respiratory: cough, dyspnea on exertion Cardiovascular: no symptoms reported; No chest pain, No edema, No palpitations Gastrointestinal: no symptoms reported; No abdominal pain, No constipation, No diarrhea, No loss of appetite, No nausea, No vomiting Genitourinary: no symptoms reported; No dysuria, No frequency, No hematuria : No Musculoskeletal: no symptoms reported; No back pain, No joint pain, No muscle pain Skin: no symptoms reported; No rash Psychiatric/Neurological: Other (dizziness, no SOTELO) Reviewed Test Results Reviewed Test Results Lab Laboratory Tests Test 05/21/18 15:39 05/21/18 15:59 05/21/18 17:18 05/21/18 21:50 Range/Units White Blood Count 7.1 4.3-11.0 10^3/uL Red Blood Count 5.46 4.35-5.85 10^6/uL Hemoglobin 13.0 11.5-16.0 G/DL Hematocrit 41 35-52 % Mean Corpuscular Volume 75 L 80-99 FL Mean Corpuscular Hemoglobin 24 L 25-34 PG Mean Corpuscular Hemoglobin Concent 32 32-36 G/DL Red Cell Distribution Width 17.8 H 10.0-14.5 % Platelet Count 210 130-400 10^3/uL Mean Platelet Volume 10.3 7.4-10.4 FL Neutrophils (%) (Auto) 57 42-75 % Lymphocytes (%) (Auto) 35 12-44 % Monocytes (%) (Auto) 6 0-12 % Eosinophils (%) (Auto) 1 0-10 % Basophils (%) (Auto) 1 0-10 % Neutrophils # (Auto) 4.1 1.8-7.8 X 10^3 Lymphocytes # (Auto) 2.5 1.0-4.0 X 10^3 Monocytes # (Auto) 0.4 0.0-1.0 X 10^3 Eosinophils # (Auto) 0.1 0.0-0.3 10^3/uL Basophils # (Auto) 0.1 0.0-0.1 10^3/uL Sodium Level 133 L 135-145 MMOL/L Potassium Level 4.0 3.6-5.0 MMOL/L Chloride Level 95 L 98-107 MMOL/L Carbon Dioxide Level 16 L 21-32 MMOL/L Anion Gap 22 H 5-14 MMOL/L Blood Urea Nitrogen 12 7-18 MG/DL Creatinine 0.60 0.60-1.30 MG/DL Estimat Glomerular Filtration Rate > 60 BUN/Creatinine Ratio 20 Glucose Level 394 H 70-105 MG/DL Calcium Level 9.3 8.5-10.1 MG/DL Corrected Calcium 9.5 8.5-10.1 MG/DL Total Bilirubin 0.3 0.1-1.0 MG/DL Aspartate Amino Transf (AST/SGOT) 11 5-34 U/L Alanine Aminotransferase (ALT/SGPT) 10 0-55 U/L Alkaline Phosphatase 108 40-136 U/L Troponin T < 10 <=10 NG/L Total Protein 8.0 6.4-8.2 GM/DL Albumin 3.8 3.2-4.5 GM/DL Urine Color YELLOW Urine Clarity CLEAR Urine pH 6.0 5-9 Urine Specific [place] 1.010 L 1.016-1.022 Urine Protein NEGATIVE NEGATIVE Urine Glucose (UA) 3+ H NEGATIVE Urine Ketones NEGATIVE NEGATIVE Urine Nitrite NEGATIVE NEGATIVE Urine Bilirubin NEGATIVE NEGATIVE Urine Urobilinogen 0.2 NORMAL MG/DL Urine Leukocyte Esterase NEGATIVE NEGATIVE Urine RBC (Auto) NEGATIVE NEGATIVE Urine RBC NONE /HPF Urine WBC NONE /HPF Urine Squamous Epithelial Cells 0-2 /HPF Urine Crystals NONE /LPF Urine Bacteria NONE /HPF Urine Casts NONE /LPF Urine Mucus NEGATIVE /LPF Urine Culture Indicated NO Urine Opiates Screen NEGATIVE NEGATIVE Urine Oxycodone Screen NEGATIVE NEGATIVE Urine Methadone Screen NEGATIVE NEGATIVE Urine Propoxyphene Screen NEGATIVE NEGATIVE Urine Barbiturates Screen NEGATIVE NEGATIVE Ur Tricyclic Antidepressants Screen NEGATIVE NEGATIVE Urine Phencyclidine Screen NEGATIVE NEGATIVE Urine Amphetamines Screen NEGATIVE NEGATIVE Urine Methamphetamines Screen NEGATIVE NEGATIVE Urine Benzodiazepines Screen NEGATIVE NEGATIVE Urine Cocaine Screen NEGATIVE NEGATIVE Urine Cannabinoids Screen NEGATIVE NEGATIVE Glucometer 287 H 261 H 70-110 MG/DL Test 05/22/18 05:40 05/22/18 09:43 05/22/18 15:06 05/22/18 15:26 Range/Units White Blood Count 5.8 4.3-11.0 10^3/uL Red Blood Count 4.84 4.35-5.85 10^6/uL Hemoglobin 11.6 11.5-16.0 G/DL Hematocrit 36 35-52 % Mean Corpuscular Volume 75 L 80-99 FL Mean Corpuscular Hemoglobin 24 L 25-34 PG Mean Corpuscular Hemoglobin Concent 32 32-36 G/DL Red Cell Distribution Width 17.5 H 10.0-14.5 % Platelet Count 187 130-400 10^3/uL Mean Platelet Volume 10.6 H 7.4-10.4 FL Neutrophils (%) (Auto) 49 42-75 % Lymphocytes (%) (Auto) 42 12-44 % Monocytes (%) (Auto) 7 0-12 % Eosinophils (%) (Auto) 2 0-10 % Basophils (%) (Auto) 0 0-10 % Neutrophils # (Auto) 2.8 1.8-7.8 X 10^3 Lymphocytes # (Auto) 2.4 1.0-4.0 X 10^3 Monocytes # (Auto) 0.4 0.0-1.0 X 10^3 Eosinophils # (Auto) 0.1 0.0-0.3 10^3/uL Basophils # (Auto) 0.0 0.0-0.1 10^3/uL Sodium Level 135 135-145 MMOL/L Potassium Level 4.0 3.6-5.0 MMOL/L Chloride Level 105 98-107 MMOL/L Carbon Dioxide Level 23 21-32 MMOL/L Anion Gap 7 5-14 MMOL/L Blood Urea Nitrogen 12 7-18 MG/DL Creatinine 0.83 0.60-1.30 MG/DL Estimat Glomerular Filtration Rate > 60 BUN/Creatinine Ratio 14 Glucose Level 289 H 70-105 MG/DL Calcium Level 8.8 8.5-10.1 MG/DL Corrected Calcium 9.4 8.5-10.1 MG/DL Total Bilirubin 0.2 0.1-1.0 MG/DL Aspartate Amino Transf (AST/SGOT) 10 5-34 U/L Alanine Aminotransferase (ALT/SGPT) 13 0-55 U/L Alkaline Phosphatase 80 40-136 U/L Total Protein 6.5 6.4-8.2 GM/DL Albumin 3.2 3.2-4.5 GM/DL Glucometer 392 H 230 H 70-110 MG/DL Physical Exam-(CHC) Physical Exam Vital Signs VS - Last 72 Hours, by Label 05/21/18 05/21/18 05/21/18 05/21/18 15:24 17:57 19:54 20:00 Temp 97.0 97.0 Pulse 99 82 89 Resp 18 17 B/P (MAP) 157/74 (101) 124/70 (88) Pulse Ox 97 98 O2 Delivery Room Air 05/21/18 05/21/18 05/21/18 05/22/18 20:19 20:26 22:46 00:18 Temp 98.6 98.6 98.3 Pulse 86 86 86 74 Resp 18 18 18 B/P (MAP) 133/72 133/72 (92) 105/65 (78) Pulse Ox 97 97 97 96 O2 Delivery Room Air Room Air Room Air FiO2 21 05/22/18 05/22/18 05/22/18 05/22/18 01:00 01:13 05:27 06:44 Temp 98.7 Pulse 87 67 Resp 18 B/P (MAP) 100/66 (77) Pulse Ox 97 97 98 O2 Delivery Room Air Room Air Room Air 05/22/18 05/22/18 05/22/18 05/22/18 07:00 08:23 09:18 11:28 Temp 97.9 Pulse 75 82 Resp 20 B/P (MAP) 121/74 (90) Pulse Ox 99 98 O2 Delivery Room Air Room Air Room Air 05/22/18 05/22/18 05/22/18 12:00 12:52 14:47 Temp 97.0 Pulse 87 86 Resp 18 B/P (MAP) 109/65 (80) Pulse Ox 98 99 O2 Delivery Room Air Room Air Capillary Refill : Less Than 3 Seconds General Appearance: WD/WN, no apparent distress HEENT: PERRL/EOMI, TMs normal, pharynx normal Neck: non-tender, full range of motion, supple Respiratory: chest non-tender, lungs clear, normal breath sounds, no respiratory distress, no accessory muscle use Cardiovascular: normal peripheral pulses, regular rate, rhythm, no edema, no murmur Gastrointestinal: normal bowel sounds, non tender, soft, no organomegaly Back: no CVA tenderness, no vertebral tenderness Extremities: no pedal edema, no calf tenderness, normal capillary refill 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 as tested, no motor/sensory deficits, alert, normal mood/affect, oriented x 3 Skin: normal color, warm/dry Lymphatic: no adenopathy Assessment/Plan Assessment/Plan Admission Status: Inpatient Order (span 2 midnights) Reason for Inpatient Admission: Requires close monitoring for syncopal episode (1) Syncope and collapse Status: Acute Assessment & Plan: - Normal ECG and Tele strip, continue to monitor, labs normal, Orthostatics normal, CT Head normal (2) New onset type 2 diabetes mellitus Status: Acute Assessment & Plan: - A1c pending, would maximize PO diabetic meds, will need glucometer at discharge (3) DVT prophylaxis Status: Acute Assessment & Plan: lovenox Clinical Quality Measures DVT/VTE Risk/Contraindication: Risk Factor Score Per Nursin RFS Level Per Nursing on Admit: 3=High Copy Copies To 1: KARL UMANZOR MD, HOLLY R MD May 22, 2018 15:39
[2018-05-22 16:10] VITALS: BP 130/62
[2018-05-22 20:00] VITALS: BP 128/84
[2018-05-22] MEDS ORDERED: SCOPOLAMINE 1.5 MG (TRANSDERM-SCOP) PATCH TD ONE (21:15)
[2018-05-23] VITALS: BP 140/69
[2018-05-23 04:00] VITALS: BP 134/68
[2018-05-23] MEDS: RT-ALBUTEROL/IPRATROPIUM 3 ML (DUONEB) VIAL INH SCH ×2 (06:50→10:57)
[2018-05-23] MEDS: inSUlin ASPART (NovoLOG) 1 UNIT/0.01 ML (CHARGE PER UNIT) SC SCH ×2 (06:54→09:59)
[2018-05-23 07:21] LABS: BUN/CREATININE RATIO 15; CALCIUM 9.1 MG/DL (8.5-10.1); CARBON DIOXIDE 23 MMOL/L (21-32); CHLORIDE 104 MMOL/L (98-107); CHOLESTEROL 214 MG/DL (< 200); CREATININE SERUM 0.85 MG/DL (0.60-1.30); GFR ESTIMATED > 60; HDL CHOLESTEROL 39 MG/DL (40-60); POTASSIUM 4.3 MMOL/L (3.6-5.0); SODIUM 135 MMOL/L (135-145); TRIGLYCERIDES 221 MG/DL (<150); VLDL CHOLESTEROL 44 MG/DL (5-40)
[2018-05-23 07:30] LABS: GLUCOSE 412 MG/DL (70-105)
[2018-05-23 08:00] VITALS: BP 128/60
[2018-05-23] MEDS: NICOTINE 21 MG (NICODERM) PATCH TD SCH (09:59)
[2018-05-23] MEDS: [UNRECOGNIZED DRUG - REMARK] TP SCH (09:59)
[2018-05-23] MEDS ORDERED: LEVOFLOXACIN 750 MG TAB (LEVAQUIN) PO SCH (11:00)
[2018-05-23 12:00] VITALS: BP 120/62
--- NOTE | 2018-05-23 12:35 | Discharge Summary ---
Diagnosis/Chief Complaint Date of Admission May 21, 2018 at 17:28 Date of Discharge 05/23/2018 Admission Diagnosis Admission Diagnosis See problem list Discharge Diagnosis See below Problems/Diagnosis: (1) Syncope and collapse Assessment & Plan: - Normal ECG and Tele strip, continue to monitor, labs normal, Orthostatics normal, CT Head normal, Likely 2/2 to blood sugar shifts Status: Acute (2) New onset type 2 diabetes mellitus Assessment & Plan: - A1c 13.2, would maximize PO diabetic meds, will need glucometer at discharge Status: Acute (3) DVT prophylaxis Assessment & Plan: lovenox Status: Acute Chief Complaint/HPI Chief Complaint/HPI 48 yo F that presented to ER after syncopal episode. States that starting last week she has been having dizzy spells. States that she get the dizzy spells when she stands up or is standing up. Her syncopal episode happened when she was in the shower. She felt the room spinning and then everything went dark. Denies any shortness of breath or chest pain prior or during these episodes. She was found to have elevated blood sugars in the ER. Denies any other symptoms or medical problems Discharge Summary-Simple/Stand Consultations Discharge Physical Examination Allergies: Coded Allergies: metformin (Verified Allergy, Severe, THROAT EDEMA, 05/26/18) sitagliptin (Verified Allergy, Severe, THROAT EDEMA, 05/26/18) Penicillins (Verified Allergy, Unknown, swelling, 05/21/18) Sulfa (Sulfonamide Antibiotics) (Verified Allergy, Unknown, swelling, 05/21) cortisone (Verified Allergy, Unknown, 05/21/18) prednisone (Verified Allergy, Unknown, swelling, 05/21/18) Vitals & I&Os Vital Sign - Last 12Hours Date Time Temp Pulse Resp B/P (MAP) Pulse Ox O2 Delivery O2 Flow Rate FiO2 05/23/18 10:57 94 Room Air 05/23/18 08:00 95.5 87 18 128/60 (82) 05/21/18 22:46 21 Intake and Output 05/23/18 00:00 Intake Total 2030 ml Balance 2030 ml General Appearance: Alert, Oriented X3, Cooperative, No Acute Distress HEENT: Mucous Memb Moist/[place] Respiratory: Clear to Auscultation, Normal Air Movement Cardiovascular: Regular Rate, No Murmurs Abdominal: Normal Bowel Sounds, Soft, No Tenderness, No Hepatosplenomegaly, No Masses Extremities: No Edema, No Tenderness/Swelling Skin: No Rashes, No Breakdown Neuro: Strength at 5/5 X4 Ext, Sensation Intact, Cranial Nerves 3-12 NL Psych/Mental Status: Mental Status NL, Mood NL Hospital Course Was the Problem List Reviewed?: Yes See final discharge diagnosis. Discussion & Recommendations 48 yo F that present with syncope. Patient was found to have severely uncontrolled blood sugars and an A1c of 13. States that she has never been diagnosed with DM before. She was sent home on oral DM meds as she did not want to start insulin at this time. She was seen by DM educator during visit. Glucometer available at [facility] for pickup upon discharge. Will need close follow up for addition of medications as single agent is not likely to get patient to goal. Discharge Condition at discharge stable Instructions to patient/family Please see electronic discharge instructions given to patient. Discharge Medications Reviewed and agree with Discharge Medication list on patient's Discharge Instruction sheet Clinical Quality Measures DVT/VTE Risk/Contraindication: Risk Factor Score Per Nursin RFS Level Per Nursing on Admit: 3=High ALEX EDOUARD MD May 23, 2018 12:35
[2018-05-23] MEDS ORDERED: LEVO750T39 PO (12:37)
[2018-05-23] MEDS ORDERED: SITA1TAB2 PO (12:37)
--- NOTE | 2018-05-23 12:41 | Discharge Instructions ---
Discharge [facility] Discharge Medications New, Converted or Re-Newed RX: Transmitted to Pharmacy New Medications: Sitagliptin Phos/Metformin HCl (Janumet 50-500 mg Tablet) 1 Tab Tablet 1 TAB PO DAILY for 30 Days, #30 TAB 0 Refills Levofloxacin (Levofloxacin) 750 Mg Tablet 750 MG PO DAILY@1100, #5 TAB Continued Medications: Loratadine (Claritin) 10 Mg Tablet 10 MG PO DAILY PRN for ALLERGIES, TAB Discontinued Medications: Guaifenesin (Mucinex) 600 Mg Tab.er.12h 600 MG PO BID PRN for CONGESTION, TAB Patient Instructions Goal/Follow Up Appt: You have an appt with Dr Daily 05/31 @ 945 AM Patient Instructions: - Make sure you complete you complete your antibiotics Activity & Diet Discharge Diet: ADA Diet Activity as Tolerated: Yes Orders-Post D/C & Referrals Pneu Vac Indicated: Yes Copy Copies To 1: KARL DAILY MD, HOLLY R MD May 23, 2018 12:41
--- NOTE | 2018-05-23 14:00 | NUR ---
CM/SS. Patient is discharged today to home with spouse. DIABETIC SUPPLIES ARIELA: Provided patient with glucometer, strips and lancets due to new onset IDDM II. Uninsured, unemployed. Referred to Patient Educator/Farhan Bean for education prior to discharge. Spouse Marco Patel here and he has coordinated patient Rx with [facility].
--- NOTE | 2018-05-25 10:00 | Physician Query Clarification ---
PQ-Conflicting Diagnosis Admission/Discharge Admission Date: May 21, 2018 at 17:28 Discharge Date: May 23, 2018 at 14:37 The medical record reflects the following clinical scenario: History/Risk Factors: syncope, diabetes Clinical Findings: questionable minimal infiltrate rt base, decreased breath sounds, rhonchi diffusely Treatment: IV Levoquin Question: Do you agree with the impression of the pneumonia per Dr. Menendez. Diagnosis only listed in ER record not elsewhere in the chart. Please document a response below. PHYSICIAN RESPONSE Do you agree w/Consulting Dx?: No Explanation of clincal finding Patient was not d/c on antibiotics In responding to this query, please exercise your independent professional judgment. The purpose of this communication is to more accurately reflect the complexity of your patients condition. The fact that a question is asked does not imply that any particular answer is desired or expected. Thank you for your timely response to this clarification. Requestors name: Karen THIS PHYSICIAN QUERY FORM IS A PERMANENT PART OF THE MEDICAL RECORD KAREN CHRISTOPHER May 25, 2018 10:00 ALEX EDOUARD MD June 13, 2018 17:09
--- NOTE | 2018-05-25 10:11 | Physician Query Clarification ---
PQ-Link Manifestation-Etiology Admission/Discharge Admission Date: May 21, 2018 at 17:28 Discharge Date: May 23, 2018 at 14:37 The medical record reflects the following clinical scenario: History/Risk Factors: diabetes Clinical Findings: dizzy spells standing up or standing, mild headache Treatment: telemetry, IV fluids, monitoring Question: Can you specify if the syncope is due to/associated with ___ (please specify etiology)? Please document a response below PHYSICIAN RESPONSE Manifestation due to/assoic: Clinically undetermined In responding to this query, please exercise your independent professional judgment. The purpose of this communication is to more accurately reflect the complexity of your patients condition. The fact that a question is asked does not imply that any particular answer is desired or expected. Thank you for your timely response to this clarification. Requestors name: Karen THIS PHYSICIAN QUERY FORM IS A PERMANENT PART OF THE MEDICAL RECORD KAREN CHRISTOPHER May 25, 2018 10:11 ALEX EDOUARD MD June 13, 2018 17:08
== END 2018-05-23 14:37 | disposition home or self-care (01) | DRG 638 ==
LOC: EDUNIT# 15:19 → ER FS 15:21 → 4TH 17:28
PROVIDERS: ADMIT Family Medicine; ATTEND Family Medicine
DX: E11.65 Type 2 diabetes mellitus with hyperglycemia (principal); E87.2 Acidosis; R55 Syncope and collapse; F17.210 Nicotine dependence, cigarettes, uncomplicated; R42 Dizziness and giddiness; R51 Headache; R53.1 Weakness
CPT/HCPCS: 36415; 70450; 71045; 80048; 80053; 80061; 80306; 81000; 82728; 82962; 83036; 83540; 84484; 85025; 93005; 93041; 94640; 94760; 96361; 96365; 96372

== ENCOUNTER 2018-05-26 13:26 | Emergency (ER) | payer SELFPAY ==
[~2018-05-26] VITALS: Ht 162.6 cm; Wt 74.8 kg
[~2018-05-26 13:26] MED LIST: GUAI600T43 PO; LEVO750T39 PO; LORA10TA76 PO; SITA1TAB2 PO
--- OUTSIDE RECORDS SUMMARY | 2018-05-26 13:32 | XMS REPORT | Continuity of Care Document ---
Demographics x Preferred Language Unknown Marital Status Unknown Congregation Affiliation Unknown Race Unknown Ethnic Group Unknown [...] Procedures Code [place] [address] EMERGENCY DEPT VISIT 08/22/2014 Results Test Result [...] Status Pt. Type Provider Facility Loc./Unit Complaint [id number] 08/22/2014 18:14:00 08/22/2014 18:50:00 DIS Emergency CONSTANTINE SANCHEZ [facility] EMR [id number] 08/03/2014 21:54:00 08/04/2014 01:00:00 DIS Emergency HARLEEN HENDRICKSON [facility] EMR [id number] 08/01/2014 21:40:00 08/02/2014 01:17:00 DIS Emergency SAJI GEORGE [facility] EMR [id number] 01/05/2014 00:00:00 Document Registration [id number] 09/16/2016 14:10:02 ACT Unknown
--- NOTE | 2018-05-26 13:38 | ED General ---
General Chief Complaint: Glucose Problems Stated Complaint: BLOOD SUGAR LEVELS 200-300 Source of Information: Patient Exam Limitations: No Limitations History of Present Illness Date Seen by Provider: May 26, 2018 Time Seen by Provider: 13:36 Initial Comments To ER with high blood sugar in the range of 200-365 last night. She has A new diagnosis of type 2 diabetes on 05/21/18. She was started on Janumet but had an allergic reaction involving airway swelling she states. She was then started on glimepiride 1 mg daily yesterday. She is currently on Levaquin for pneumonia. Timing/Duration: 3-4 Days Severity: Moderate Allergies and Home Medications Allergies Coded Allergies: metformin (Verified Allergy, Severe, THROAT EDEMA, 05/26/18) sitagliptin (Verified Allergy, Severe, THROAT EDEMA, 05/26/18) Penicillins (Verified Allergy, Unknown, swelling, 05/21/18) Sulfa (Sulfonamide Antibiotics) (Verified Allergy, Unknown, swelling, 05/21) cortisone (Verified Allergy, Unknown, 05/21/18) prednisone (Verified Allergy, Unknown, swelling, 05/21/18) Home Medications Levofloxacin 750 Mg Tablet, 750 MG PO DAILY@1100 Prescribed by: ALEX EDOUARD on 05/23/18 1237 Loratadine 10 Mg Tablet, 10 MG PO DAILY PRN for ALLERGIES, (Reported) Patient Home Medication List Home Medication List Reviewed: Yes Review of Systems Review of Systems Constitutional: see HPI, weakness EENTM: see HPI Respiratory: no symptoms reported Cardiovascular: no symptoms reported Genitourinary: no symptoms reported Musculoskeletal: no symptoms reported Skin: no symptoms reported Psychiatric/Neurological: No Symptoms Reported Hematologic/Lymphatic: No Symptoms Reported Immunological/Allergic: no symptoms reported Past Aovjntu-Hrtqgl-Idtyck Hx Patient Social History Type Used: Cigarettes 2nd Hand Smoke Exposure: Yes Recent Foreign Travel: No Contact w/Someone Who Travel: No Recent Hopitalizations: No Seasonal Allergies Seasonal Allergies: No Past Medical History Surgeries: Yes (dental; ) Tubal Ligation Respiratory: No Cardiac: Yes (anemia) Genitourinary: No Gastrointestinal: No Musculoskeletal: Yes Arthritis Endocrine: No HEENT: No Cancer: No Psychosocial: No Integumentary: No Blood Disorders: Yes (anemia) Adverse Reaction/Blood Tranf: No Family Medical History CAD Over 55 Years Old, COPD, Diabetes Physical Exam Vital Signs Vital Signs - First Documented 05/26/18 13:30 Temp 98.0 Pulse 93 Resp 16 B/P (MAP) 134/88 (103) Pulse Ox 96 O2 Delivery Room Air Capillary Refill : Height, Weight, BMI Height: 5'5.00" Weight: 170lbs. 0.0oz. 77.935537hz; 28.3 BMI Method:Stated General Appearance: No Apparent Distress, WD/WN Eyes: Bilateral Eye Normal Inspection, Bilateral Eye PERRL, Bilateral Eye EOMI HEENT: PERRL/EOMI, TMs Normal Respiratory: Normal Breath Sounds, No Respiratory Distress Cardiovascular: Regular Rate, Rhythm, Normal Peripheral Pulses Gastrointestinal: Normal Bowel Sounds, Non Tender, Soft Extremity: Normal Capillary Refill, Normal Inspection Neurologic/Psychiatric: Alert, Oriented x3 Skin: Normal Color, Warm/Dry Progress/Results/Core Measures Suspected Sepsis SIRS Temperature: Pulse: Respiratory Rate: Blood Pressure / Mean: Results/Orders Lab Results Laboratory Tests Test 05/26/18 13:33 Range/Units Glucometer 162 H 70-110 MG/DL My Orders Orders - RADHA AGUIRRE APRN Cbc With Automated Diff (05/26/18 13:35) Comprehensive Metabolic Panel (05/26/18 13:35) Vital Signs/I&O 05/26/18 13:30 Temp 98.0 Pulse 93 Resp 16 B/P (MAP) 134/88 (103) Pulse Ox 96 O2 Delivery Room Air Capillary Refill : Departure Impression Primary Impression: Diabetes mellitus Qualified Codes: E11.8 - Type 2 diabetes mellitus with unspecified complications Disposition: 01 HOME, SELF-CARE Condition: Stable Departure-Patient Inst. Decision time for Depature: 13:50 Referrals: KARL UMANZOR MD (PCP/Family) Primary Care Physician Patient Instructions: Diabetes Type 2 (DC) Add. Discharge Instructions: At this time I would not change your medications. Through a good diet, increase in exercise, drink plenty of fluids and adherence to your medication you may be able to avoid insulin use for quite some time. Call your doctor on Monday to make an appointment to be seen. Check your blood sugar twice a day in the meantime. Copy Copies To 1: RITESH ARMENTA PETER J APRN May 26, 2018 13:38
[2018-05-26 13:57] LABS: BASOPHILS % (AUTO) 1 % (0-10); EOSINOPHILS # (AUTO) 0.1 10^3/uL (0.0-0.3); EOSINOPHILS % (AUTO) 2 % (0-10); HEMATOCRIT 44 % (35-52); HEMOGLOBIN 14.4 G/DL (11.5-16.0); LYMPHOCYTES # (AUTO) 2.6 X 10^3 (1.0-4.0); LYMPHOCYTES % (AUTO) 32 % (12-44); MEAN CORPUSCULAR HEMOGLOBIN 24 PG (25-34); MEAN CORPUSCULAR HGB CONC 33 G/DL (32-36); MEAN CORPUSCULAR VOLUME 73 FL (80-99); MEAN PLATELET VOLUME 10.7 FL (7.4-10.4); MONOCYTES # (AUTO) 0.5 X 10^3 (0.0-1.0); MONOCYTES % (AUTO) 6 % (0-12); NEUTROPHILS # (AUTO) 4.9 X 10^3 (1.8-7.8); NEUTROPHILS % (AUTO) 60 % (42-75); PLATELET COUNT 243 10^3/uL (130-400); RED CELL DISTRIBUTION WIDTH 19.1 % (10.0-14.5); WHITE BLOOD COUNT 8.1 10^3/uL (4.3-11.0)
[2018-05-26 14:16] LABS: ALANINE AMINOTRANSFERASE 14 U/L (0-55); ALBUMIN 4.4 GM/DL (3.2-4.5); ALKALINE PHOSPHATASE 102 U/L (40-136); BILIRUBIN,TOTAL 0.4 MG/DL (0.1-1.0); BUN/CREATININE RATIO 19; CALCIUM 10.8 MG/DL (8.5-10.1); CARBON DIOXIDE 25 MMOL/L (21-32); CHLORIDE 100 MMOL/L (98-107); CREATININE SERUM 0.88 MG/DL (0.60-1.30); GFR ESTIMATED > 60; GLUCOSE 155 MG/DL (70-105); POTASSIUM 4.1 MMOL/L (3.6-5.0); SODIUM 139 MMOL/L (135-145); TOTAL PROTEIN 8.9 GM/DL (6.4-8.2)
[2018-05-26 14:23] VITALS: BP 134/88
== END 2018-05-26 14:23 | disposition home or self-care (01) ==
LOC: EDUNIT# 13:26 → ER 13:28
DX: E11.65 Type 2 diabetes mellitus with hyperglycemia (principal); D64.9 Anemia, unspecified; Z82.49 Family history of ischemic heart disease and other diseases of the circulatory system; Z88.8 Allergy status to other drugs, medicaments and biological substances; Z88.0 Allergy status to penicillin; Z88.2 Allergy status to sulfonamides; Z79.4 Long term (current) use of insulin; Z87.01 Personal history of pneumonia (recurrent); Z77.22 Contact with and (suspected) exposure to environmental tobacco smoke (acute) (chronic); Z98.51 Tubal ligation status
CPT/HCPCS: 36415; 80053; 82962; 85025

== ENCOUNTER → 2019-07-03 | Outpatient (CLI) | payer SELFPAY ==
--- NOTE | 2019-07-03 11:09 | Diagnostic Imaging Report ---
EXAMINATION: MRI of the lumbar spine without contrast 07/03/2019. TECHNIQUE: Multiplanar, multisequence MRI of the lumbar spine was performed without contrast. INDICATION: Low back pain. No known injuries. FINDINGS: Alignment of the spine is preserved. No subluxations or fractures appreciated. Tip of the conus is unremarkable in appearance and location. L1-L2: No significant bulging disc material is noted. There is mild bilateral facet hypertrophy. The neural foramina are unremarkable. L2-L3: No central or neural foraminal stenosis. No bulging disc material. Bilateral facet and ligamentum flavum hypertrophy noted. L3-L4: There is bilateral facet and ligamentum flavum hypertrophy with disc desiccation and a broad-based bulging disc flattening the ventral thecal sac. There is no central stenosis. There is bilateral narrowing of the neural foramina worse on the right which is moderate and mild on the left. L4-L5: There is a left paracentral disc extrusion which extends into the left lateral recess. This in addition to bilateral facet and ligamentum flavum hypertrophy cause moderate central stenosis, likely encroaching upon the transiting left nerve root. Disc desiccation is overall noted. There is moderate bilateral neural foraminal stenosis. L5-S1: There is bilateral facet and ligamentum flavum hypertrophy. There is a mild broad-based bulging disc. No central stenosis. Mild bilateral neural foraminal narrowing, right worse than left. Visualized intra-abdominal structures demonstrate no acute abnormalities. However, small cystic area within the right kidney noted and too small for characterization. The right renal pelvis is prominent but perhaps due to an extrarenal pelvis. More distal ureter is unremarkable. IMPRESSION: 1. Multilevel degenerative findings as above with a rather prominent disc extrusion left paracentral at L4-L5 possibly encroaching upon the transiting left nerve root and causing moderate central stenosis. 2. Multilevel neural foraminal narrowing. Dictated by: Dictated on workstation # [id number]
== END ==
LOC: RAD 09:02
PROVIDERS: ATTEND Family Medicine
DX: M47.816 Spondylosis without myelopathy or radiculopathy, lumbar region (principal); M48.061 Spinal stenosis, lumbar region without neurogenic claudication
CPT/HCPCS: 72148

== ENCOUNTER 2019-10-14 13:30 | Emergency (ER) | payer SELFPAY ==
[~2019-10-14] VITALS: Ht 165.1 cm; Wt 76.3 kg
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
[2019-10-14 13:49] VITALS: BP 147/83
[2019-10-14] MEDS ORDERED: DOXY100T2 PO (14:04)
[2019-10-14] MEDS ORDERED: DOXYCYCLINE 100 MG (VIBRAMYCIN) TABLET PO ONE (14:15)
== END 2019-10-14 14:14 | disposition home or self-care (01) ==
LOC: EDUNIT# 13:30 → ER FS 13:32
DX: T23.651A Corrosion of second degree of right palm, initial encounter (principal); T23.65 Corrosion of second degree of palm; T23.621A Corrosion of second degree of single right finger (nail) except thumb, initial encounter; Z88.8 Allergy status to other drugs, medicaments and biological substances; Z88.0 Allergy status to penicillin; Z88.2 Allergy status to sulfonamides; Z77.22 Contact with and (suspected) exposure to environmental tobacco smoke (acute) (chronic); Z98.51 Tubal ligation status; Z83.3 Family history of diabetes mellitus
CPT/HCPCS: 99283